=== PATIENT | female | born 1995 | race Hispanic/Latino ===

== ENCOUNTER 2019-09-03 20:39 | Emergency (ER) | payer OTHER ==
[~2019-09-03] VITALS: Ht 154.9 cm; Wt 60.0 kg
[2019-09-03] MEDS ORDERED: IBUPROFEN 600MG TAB PO ONE (21:30)
[2019-09-03] MEDS ORDERED: diazePAM 10 MG TAB PO ONE (21:30)
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
[2019-09-03 22:55] VITALS: BP 127/77
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
== END 2019-09-03 23:02 | disposition home or self-care (01) ==
LOC: M ED 20:39
DX: S16.1XXA Strain of muscle, fascia and tendon at neck level, initial encounter (principal); S29.012A Strain of muscle and tendon of back wall of thorax, initial encounter; S40.012A Contusion of left shoulder, initial encounter; V49.59XA Passenger injured in collision with other motor vehicles in traffic accident, initial encounter; Y92.410 Unspecified street and highway as the place of occurrence of the external cause

== ENCOUNTER → 2022-04-08 | Outpatient (REF) ==
[2022-04-10 08:09] LABS: HERPES ZOSTER, VARICELLA IgG <135 index (Immune >165); RUBEOLA IgG ANTIBODY 49.1 AU/mL (Immune >16.4)
== END ==
LOC: M LAB 14:36
PROVIDERS: ATTEND Nurse Practitioner Adult Health
DX: Z02.1 Encounter for pre-employment examination (principal)

== ENCOUNTER → 2022-05-13 | Outpatient (REF) ==
[2022-05-13 13:29] LABS: RSV AMPLIFICATION NEGATIVE (NEGATIVE)
== END ==
LOC: M LABSMTC 10:33
PROVIDERS: ATTEND Family Medicine
DX: Z11.52 Encounter for screening for COVID-19 (principal)